=== PATIENT | male | born 1940 | race Caucasian/White ===

== ENCOUNTER 2017-04-05 07:00 | Inpatient (IN) | payer MEDICARE, OTHER ==
[~2017-04-05] VITALS: Ht 178 cm; Wt 86.0 kg
[2017-04-06 05:36] LABS: WBC 7.2 K/uL (4.0-10.5)
[2017-04-06 05:37] LABS: HCT 32.7 % (42.0-52.0); MCH 30.6 pg (25.0-31.0); MCHC 33.6 g/dL (32.0-36.0); MCV 90.8 fL (78.0-100.0); PLT 218 K/uL (150-400)
[2017-04-06 05:52] LABS: CREATININE 0.9 mg/dL (0.7-1.2); POTASSIUM 4.2 mmol/L (3.5-5.1)
[2017-04-07 05:49] LABS: HCT 31.8 % (42.0-52.0); HGB 10.5 g/dl (13.2-18.0); MCH 29.9 pg (25.0-31.0); MCV 90.6 fL (78.0-100.0); MPV 9.6 fL (6.0-9.5); RBC 3.51 M/uL (4.70-6.00); RDW 13.2 % (11.5-14.0); WBC 6.1 K/uL (4.0-10.5)
[2017-04-08 06:21] LABS: HCT 31.8 % (42.0-52.0); HGB 10.6 g/dl (13.2-18.0); MCHC 33.3 g/dL (32.0-36.0); MCV 90.1 fL (78.0-100.0); MPV 9.4 fL (6.0-9.5); RBC 3.53 M/uL (4.70-6.00); RDW 13.1 % (11.5-14.0); WBC 6.7 K/uL (4.0-10.5)
== END 2017-04-08 14:50 | disposition home or self-care (01) | DRG 470 ==
LOC: FMS 07:00
PROVIDERS: ADMIT Legal Medicine
PROC: 8E0YXBZ Computer Assisted Procedure of Lower Extremity (ICD-10-PCS; 2017-04-05)
PROC: 0SRD0J9 Replacement of Left Knee Joint with Synthetic Substitute, Cemented, Open Approach (ICD-10-PCS; principal; 2017-04-05 08:00)
DX: M17.12 Unilateral primary osteoarthritis, left knee (principal); E11.9 Type 2 diabetes mellitus without complications; I10 Essential (primary) hypertension; M21.162 Varus deformity, not elsewhere classified, left knee; E78.00 Pure hypercholesterolemia, unspecified; Z87.891 Personal history of nicotine dependence; Z85.9 Personal history of malignant neoplasm, unspecified
CPT/HCPCS: 36415; 73560; 80048; 82962; 86900; 86901; 88305; 88311; 94010; 94762; 97110; 97116; 97161; 97165; 97530; 97530-GP; 97535; C1713; C1776; J0131; J0697; J1170; J1885; J2270; J2405; J2704; J2795; J3010